=== PATIENT | female | born 1980 | race Caucasian/White ===

== ENCOUNTER → 2016-09-05 08:54 | Outpatient (CLI) | payer BC ==
--- NOTE | 2016-09-05 10:49 | NUR ---
Nutrition education for weight loss: Pt reports she loves bread and sweet foods. Pt reports eating a honey bun last night. Pt drinks sweet tea and water. 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 Pt does not measure food and has no idea what a portion size should be. Pt states she is starting to gain fat around her middle. Pt very unhappy with her size; pt weights about 175#. Reviewed portion sizes of common foods. Reviewed healthy meal planning guide with emphasis on portion size. Discussed decreasing CHO to no more than 30 gms/meal. Advised to increase good fat intake to make up the lost calories from decreased CHO intake. Discussed good fat options. Also discussed protein intake. Reviewed sample menus with emphasis on decreasing CHO and increasing good fat. Pt is almost tearful when talking about giving up bread and sweet foods. Pt states she might not be able to follow meal plan. I explained that she would not be able to lose weight if she continued to eat high CHO foods. Pt reports understanding of information provided. Provided pt with printed diet information and RDN name and phone number. RDN will be avialable if needed. Thank you for the consult.
== END ==
LOC: D.FANS 08:54
DX: Z72.4 Inappropriate diet and eating habits (principal)